=== PATIENT | male | born 1950 | race Two or more races ===

== ENCOUNTER → 2025-06-09 | Outpatient (CLI) | payer MEDICARE, MEDICAID, SELFPAY ==
--- NOTE | 2025-06-09 10:12 | XR_ITS ---
Examination: Wrist, left 3 views Technique: Wrist AP, oblique, lateral 3 views Date and time of exam: December 10, 2024 1031 hours INDICATIONS: Injury to the wrist 2 weeks ago, wrist pain. FINDINGS: Severe osteopenia No acute fracture No dislocation Soft tissue vascular calcification IMPRESSION: No acute fracture
--- NOTE | 2025-06-09 10:12 | XR_ITS ---
Examination: Hand, left 3 views Technique: Hand AP, oblique, lateral 3 views Date and time of exam: June 09, 2025 10:26 AM INDICATIONS: Injury to the hand 2 weeks ago with pain FINDINGS: Prominent osteopenia. 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
== END | disposition home or self-care (01) ==
LOC: CDIM 09:58
PROVIDERS: PCP Nurse Practitioner Family; Referring Provider Nurse Practitioner Family; Visit Provider Nurse Practitioner Family
DX: S69.92XA Unspecified injury of left wrist, hand and finger(s), initial encounter (principal); X58.XXXA Exposure to other specified factors, initial encounter
CPT/HCPCS: 73110; 73130

== ENCOUNTER → 2025-06-10 | Outpatient (CLI) | payer MEDICARE, MEDICAID, SELFPAY ==
[2025-06-10 08:22] LABS: Collection Type, Urine Clean Catch
[2025-06-10 08:53] LABS: Basophils # (Auto) 0.0 Thou/mm3 (0.0-0.2); Basophils % (Auto) 0 % (0-2.5); Eosinophils # (Auto) 0.2 Thou/mm3 (0.0-0.5); Eosinophils % (Auto) 2 % (0-10); Hematocrit 40.8 % (41.0-53.0); Hemoglobin 13.7 g/dL (13.5-16.0); Immature Granulocytes Auto 0.03 Thou/mm3 (0.00-0.00); Lymphocytes # (Auto) 2.0 Thou/mm3 (1.0-4.8); Lymphocytes % (Auto) 26 % (10-50); Mean Corpuscular HGB Conc 33.6 g/dl (31.0-37.0); Mean Corpuscular Hemoglobin 29.2 pg (25.0-35.0); Mean Corpuscular Volume 87 fL (80-100); Monocytes # (Auto) 0.7 Thou/mm3 (0.0-0.8); Monocytes % (Auto) 9 % (0-12); Neutrophils # (Auto) 4.8 Thou/mm3 (1.8-7.7); Neutrophils % (Auto) 62 % (37-80); Nucleated Red Blood Cell # 0.00 Thou/mm3 (0.00-0.00); Nucleated Red Blood Cell % 0 /100 WBC (0); Platelet Count 296 Thou/mm3 (140-440); RDW Standard Deviation 41.2 fL (35.1-43.9); Red Blood Count 4.69 Miln/mm3 (4.50-5.90); White Blood Count 7.7 Thou/mm3 (3.8-10.6)
[2025-06-10 09:03] LABS: Glucose Estimated Average 134 mg/dL (80-131); Hemoglobin A1C 6.3 % Hgb (4.8-6.0)
[2025-06-10 09:05] LABS: Prostate Specific Antigen 0.95 ng/mL (0-4.00)
[2025-06-10 09:06] LABS: Bacteria,Urine Rare; Bilirubin,Urine Negative (Negative); Blood,Urine Negative (Negative); Clarity,Urine Clear (Clear/Hazy); Color,Urine Yellow (Lt Yel-Yel); Culture Indicated,Urine Not Indicated; Glucose, Urine Negative (Negative); Hyaline Casts,Urine 1 /hpf (0-1); Ketones,Urine Negative (Negative); Leukocyte Esterase,Urine Negative (Negative); Nitrite,Urine Negative (Negative); PH,Urine 5.5 (5.0-7.0); Protein,Urine 1+ (Neg - Trace); RBC,Urine 3 /hpf (0-3); Specific Gravity,Urine 1.035 (1.001-1.035); Squamous Epithelial Cell,Urine 1 /hpf (0-5); Urobilinogen,Urine 2.0 mg/dL (0.0-1.0); WBC,Urine 3 /hpf (0-5)
[2025-06-10 09:07] LABS: Vitamin D 25 Hydroxy Total 21.1 ng/mL (7.3-40.2)
[2025-06-10 09:28] LABS: Alanine Aminotransferase 16 U/L (10-49); Albumin, Serum 4.2 gm/dL (3.4-4.8); Albumin/Globulin Ratio 1.4 (1.2-2.2); Alkaline Phosphatase 80 U/L (46-116); Anion Gap 9 (7-16); Aspartate Amino Transferase 17 U/L (0-34); BUN/Creatinine Ratio 20 Ratio (12-20); Bilirubin,Total 0.4 mg/dL (0.3-1.2); Blood Urea Nitrogen 20 mg/dL (9-23); Calcium 9.0 mg/dL (8.3-10.6); Calcium (Corrected) 9.0 mg/dL (8.5-10.1); Carbon Dioxide 29.7 mMol/L (20.0-31.0); Cardiac Risk Estimate 6.5 RATIO (4.0-6.7); Chloride 105 mMol/L (98-107); Cholesterol 215 mg/dL (132-200); Creatinine (Component) 1.0 mg/dL (0.6-1.3); Free T4 (Free Thyroxine) 1.13 ng/dL (0.89-1.76); Globulin 2.9 gm/dL (2.3-3.5); Glucose 111 mg/dL (74-106); HDL Cholesterol 33 mg/dL (40-60); LDL Cholesterol,Calculated 131 mg/dL (0-130); Osmolality,Calculated 290 (275-295); Potassium 4.7 mMol/L (3.4-5.1); Sodium 144 mMol/L (136-145); Thyroid Stimulating Hormone 4.21 uIU/mL (0.55-4.78); Total Protein 7.1 gm/dL (5.7-8.2); Triglycerides 255 mg/dL (30-150); Uric Acid 8.8 mg/dL (3.7-9.2); eGFR > 60 See Note
[2025-06-10 09:35] LABS: Creatinine MALB Rnd Ur 532 mg/dL (30-125); Microalbumin Creat Ratio 18 mg/gCrea (<30); Microalbumin, Random Urine 96 mg/L (0-300)
== END | disposition home or self-care (01) ==
LOC: COPL 07:12
PROVIDERS: PCP Nurse Practitioner Family; Referring Provider Nurse Practitioner Family; Visit Provider Nurse Practitioner Family
DX: Z00.00 Encounter for general adult medical examination without abnormal findings (principal); E11.65 Type 2 diabetes mellitus with hyperglycemia; E78.2 Mixed hyperlipidemia; Z12.5 Encounter for screening for malignant neoplasm of prostate; M10.9 Gout, unspecified; Z79.891 Long term (current) use of opiate analgesic
CPT/HCPCS: 36415; 80053; 80061; 81001; 82043; 82306; 82570; 83036; 84153; 84439; 84443; 84550; 85025